=== PATIENT | female | born 1945 | race Caucasian/White ===

== ENCOUNTER → 2016-11-26 | Outpatient (CLI) | payer MEDICARE ==
[~2016-11-26] MED LIST: ACTEMRA80 MG/4 ML IV; ACTONEL150 MG PO; AMLODIPINE BESY10 MG PO; ASPIRIN81 M1 PO; ATACAND16 MG PO; CALCIUM + D 6001 TA1 PO; CALCIUM 600 + D1 TA1 PO; CALCIUM500 MG PO; CELEBREX PO; CLEOCIN PO; COZAAR25 MG PO; FISH OIL 1,0001 EAC3 PO; FLAX SEED OIL1000 M2 PO; FLEXERIL10 M1 PO; FLONASE 0.05% N16 G1; FLONASE16 GM; FORTEO2.4 ML SC; INDAPAMIDE1.25 MG PO; KEPPRA500 M1 PO; LANSOPRAZOLE30 M2 PO; LANSOPRAZOLE30 MG PO; LASIX PO; LASIX20 MG PO; LEVOXYL50 MC1 PO; LIDODERM30 EA TOP; LIPITOR PO; LIPITOR20 MG PO; LIPITOR40 MG PO; LOPRESSOR PO; MULTI VITAMIN1 EACH PO; MULTI-VITAMIN1 EAC1 PO; MULTIVITAMIN1 UDCAP PO; NAPROSYN375 MG PO; ORENCIA 25250 MG/VIA IV; PLAVIX PO; PROLIA60 MG/1 ML SQ; RECLAST 55 MG/100 M INJ; VITAMIN D 22000 UNIT PO; VITAMIN D-32000 UNI1 PO; VITAMIN D32000 UNIT PO; ZOMETA 4 M4 MG/100 M IV
== END | disposition home or self-care (01) ==
LOC: CLAB 13:49 → CSSDAY 13:49
DX: M81.0 Age-related osteoporosis without current pathological fracture (principal)
CPT/HCPCS: 36415; 82310; 96372; J0897